=== PATIENT | male | born 1960 | race Hispanic/Latino ===

== ENCOUNTER 2021-01-27 19:13 | Emergency (ER) | payer SELFPAY ==
[2021-01-27] MEDS ORDERED: HYDROCODONE/ACETAMINOPHEN 10/325 MG TAB ONE (19:44)
== END 2021-01-27 20:52 | disposition home or self-care (01) ==
LOC: EDH 19:13
DX: S63.286A Dislocation of proximal interphalangeal joint of right little finger, initial encounter (principal); E11.9 Type 2 diabetes mellitus without complications; Z72.0 Tobacco use; W18.39XA Other fall on same level, initial encounter; Y93.89 Activity, other specified; Y92.89 Other specified places as the place of occurrence of the external cause; Y99.8 Other external cause status
CPT/HCPCS: 26750; 73130; 73140